=== PATIENT | female | born 1955 ===

== ENCOUNTER 2022-09-30 05:54 | Day surgery (SDC) | payer OTHER ==
[~2022-09-30] VITALS: Ht 162.6 cm; Wt 65.8 kg
[~2022-09-30 05:54] MED LIST: CRESTOR10 MG PO; MAGNESIUM200 MG PO; PAXIL20 MG PO; SYNTHROID75 MCG PO
[2022-09-30] MEDS ORDERED: IBU600 MG PO (08:15)
== END 2022-09-30 13:05 | disposition home or self-care (01) ==
LOC: CIR.AMB 05:54
PROVIDERS: ATTEND Obstetrics & Gynecology Gynecology
DX: N84.0 Polyp of corpus uteri (principal); N84.1 Polyp of cervix uteri; Z20.822 Contact with and (suspected) exposure to COVID-19; E03.9 Hypothyroidism, unspecified; E78.5 Hyperlipidemia, unspecified